=== PATIENT | female | born 1945 | race Caucasian/White ===

== ENCOUNTER 2016-10-27 06:37 | Emergency (ER) | payer MEDICARE, OTHER ==
[~2016-10-27] VITALS: Ht 157.5 cm; Wt 65.0 kg
[~2016-10-27 06:37] MED LIST: CEPH500C3 PO; FURO20TA PO; KCL10C PO; LEVO.025 PO; SPIR50TA21 PO; VITA500015 CHEW
[2016-10-27 06:41] VITALS: BP 143/83; PULSE 84; RESP 14; TEMP 98.2; O2SAT 99
[2016-10-27] MEDS ORDERED: POTA10TA8 PO (06:48)
[2016-10-27] MEDS ORDERED: SPIR50TA PO (06:48)
[2016-10-27] MEDS ORDERED: AUGM875T PO (07:15)
[2016-10-27] MEDS ORDERED: AMOXICILLIN/CLAVULANATE K 875 MG TAB PO ONE (07:15)
[2016-10-27] MEDS ORDERED: TETANUS/DIPHTHERIA TOXOID ADULT 0.5 ML VIAL IM ONE (07:15)
[2016-10-27] MEDS ORDERED: IBUP-232 PO (07:15)
[2016-10-27] MEDS ORDERED: IBUPROFEN 600 MG TAB PO ONE (07:15)
--- NOTE | 2016-10-27 07:16 | PD ---
HPI Chief Complaint: Bite or Sting Time Seen by Provider: 07:09 Travel History International Travel<30 days: No Contact w/Intl Traveler<30days: No Traveled to known affect area: No History of Present Illness HPI 71-year-old female presents to the emergency department for evaluation of a dog bite to her left hand that occurred 3 days ago. She states that this is her dog that did this and his immunizations are up-to-date. It's a terrier mix. She reports localized tenderness and pain. She denies any fevers or chills. Patient states she currently takes a diuretic and potassium. Patient also reports striking to 25 ounce cans of alcohol daily. She denies any tobacco or drug use. She denies any loss of range of motion of the left hand. She states her tetanus immunization is not up-to-date. She denies any other complaints at this time. PFSH Past Medical History Arthritis: Yes Asthma: No Blood Disorders: No Anxiety: Yes Depression: Yes Heart Rhythm Problems: No Cancer: No Cardiovascular Problems: Yes High Cholesterol: No Chest Pain: No Congestive Heart Failure: No COPD: No Cerebrovascular Accident: No Diabetes: No Diminished Hearing: No Endocrine: No GERD: No Genitourinary: No Headaches: Yes Hepatitis: No Hiatal Hernia: No Hypertension: Yes Immune Disorder: No Kidney Stones: No Musculoskeletal: Yes (WEAKNESS) Neurologic: No Psychiatric: Yes Reproductive: No Respiratory: No Immunizations Current: No Myocardial Infarction: No Renal Failure: No Seizures: No Ulcer: No Tetanus Vaccination: < 5 Years Influenza Vaccination: Yes ?: Not Menopausal: Yes Tubal Ligation: Yes Past Surgical History Appendectomy: Yes Cholecystectomy: No Gynecologic Surgery: Yes (tubal ligation) Hysterectomy: Yes Pacemaker: No Tonsillectomy: Yes Other Surgery: Yes Social History Alcohol Use: Yes ("2 CANS DAILY") Tobacco Use: No Substance Use: No Allergies-Medications (Allergen,Severity, Reaction): Coded Allergies: No Known Allergies (Verified , 10/27/16) Reported Meds & Prescriptions Reported Meds & Active Scripts Active Reported Spironolactone 50 Mg Tab 50 Mg PO DAILY Potassium Chloride CR (Potassium Chloride) 10 Meq Tab 10 Meq PO BID Review of Systems Except as stated in HPI: all other systems reviewed are Neg Physical Exam Narrative GENERAL: Well-developed well-nourished female patient ambulatory. Afebrile., SKIN: Warm and dry. Patient has a 2 cm superficial laceration to the left dorsal hand just below the fifth MCP joint. She also has a 2 cm laceration of the dorsal surface over the second digit. She has full strength 5/5 in all digits of the left hand. She has full flexion and extension of all digits of the left hand. She also has full sensation to the distal left upper extremity. There is mild surrounding erythema to the laceration over the second digit, but no drainage. No lymphangiitis. HEAD: Normocephalic. EYES: No scleral icterus. No injection or drainage. NECK: Supple, trachea midline. No JVD or lymphadenopathy. CARDIOVASCULAR: Regular rate and rhythm without murmurs, gallops, or rubs. RESPIRATORY: Breath sounds equal bilaterally. No accessory muscle use. Lungs sounds are clear to auscultation. GASTROINTESTINAL: Abdomen soft, non-tender, nondistended. MUSCULOSKELETAL: No cyanosis, or edema. Data Data Last Documented VS Vital Signs Date Time Temp Pulse Resp B/P Pulse Ox O2 Delivery O2 Flow Rate FiO2 10/27/16 06:49 18 10/27/16 06:41 98.2 84 143/83 99 Room Air Orders Wound Care (10/27/16 07:08) Tetanus/Diphtheria Tox Adult (Tetanus/Di (10/27/16 07:15) Amoxicil-Clavulanate (Augmentin) (10/27/16 07:15) [facility] Medical Decision Making Medical Screen Exam Complete: Yes Emergency Medical Condition: Yes Medical Record Reviewed: Yes Differential Diagnosis Dog bite versus cellulitis versus laceration Narrative Course 71-year-old female presents to the emergency department for evaluation after her dog bit her left hand 3 days ago. Physical exam is reassuring. There is mild surrounding erythema to the laceration over the left second finger, but no drainage. Patient will be started on Augmentin and is given her first dose in the emergency department. Wound care is completed in the emergency department. Tetanus immunization is updated. Patient was discharged with a prescription for ibuprofen for pain, Augmentin. She is instructed on proper wound care and is to return for any acute worsening of symptoms including worsening evidence of infection. She is agreeable to this plan. The patient was discharged in stable condition with instructions, including return instructions and follow up instructions. Diagnosis Primary Impression: Dog bite of left hand Qualified Code: S61.452A - Dog bite of left hand, initial encounter Referrals: Primary Care Physician 2 days Patient Instructions: Acute Wound Care (ED), Animal Bite (ED), General Instructions Additional Instructions: Clean wounds twice daily with soap and water and apply [id number] antibiotic ointment. Keep wounds clean and dry. Take antibiotic as directed until gone. Take ibuprofen as directed as needed with food for pain. Follow-up with your primary care physician in 2 days for recheck. Return to the emergency department for any acute worsening of symptoms. Med/Other Pt SpecificInfo: Prescription(s) given Scripts Ibuprofen 600 Mg [id number] Mg PO TID PRN (PAIN SCALE 1 TO 10) #21 TAB Ref 0 Prov:Maricruz Romero 10/27/16 Amoxicillin-Clavulanate (Augmentin)875-125 mg [id number] Mg PO BID 10 Days Ref 0 not for use in CrCl <30 ml/min. Prov:Maricruz Romero 10/27/16 Disposition: 01 DISCHARGE HOME Condition: Stable Maricruz Romero Oct 27, 2016 07:16
== END 2016-10-27 07:53 | disposition home or self-care (01) ==
LOC: NEPB 06:37
DX: S61.452A Open bite of left hand, initial encounter (principal); I10 Essential (primary) hypertension; W54.0XXA Bitten by dog, initial encounter; Y92.009 Unspecified place in unspecified non-institutional (private) residence as the place of occurrence of the external cause; Z23 Encounter for immunization
CPT/HCPCS: 90471; 90714

== ENCOUNTER 2017-04-21 17:59 | Emergency (ER) | payer MEDICARE, MEDICAID ==
[~2017-04-21] VITALS: Ht 157.5 cm; Wt 66.0 kg
[~2017-04-21 17:59] MED LIST changes: +AUGM875T PO; -CEPH500C3 PO; -FURO20TA PO; +IBUP-232 PO; -KCL10C PO; -LEVO.025 PO; +POTA10TA8 PO; +SPIR50TA PO; -SPIR50TA21 PO; -VITA500015 CHEW
[2017-04-21 19:20] VITALS: BP 98/57; PULSE 85; RESP 18; TEMP 97.6; O2SAT 94
[2017-04-21] MEDS ORDERED: SODIUM CHLOR 0.9% 1000 ML INJ 1,000 ML IV SCH (19:23)
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
[2017-04-21] MEDS ORDERED: SODIUM CHLORIDE 0.9% FLUSH 5 ML FLUSH IV FLUSH PRN (19:30)
[2017-04-21] MEDS ORDERED: LIBRAX PO (19:55)
[2017-04-21 20:31] LABS: AUTOMATED NEUTROPHIL # 8.8 TH/MM3 (1.8-7.7); BASOPHIL # 0.1 TH/MM3 (0-0.2); BASOPHIL % 0.7 % (0.0-2.0); EOSINOPHIL # 0.4 TH/MM3 (0-0.4); EOSINOPHIL % 2.9 % (0.0-4.0); HEMATOCRIT 40.4 % (35.0-46.0); HEMO FLAGS DIFF FINAL; LYMPH % 20.4 % (9.0-44.0); LYMPHOCYTE # 2.5 TH/MM3 (1.0-4.8); MEAN CELL VOLUME 89.2 FL (80.0-100.0); MEAN CORPUSCULAR HEMOGLOBIN 28.5 PG (27.0-34.0); MONO % 4.9 % (0.0-8.0); NEUT % 71.1 % (16.0-70.0); PLATELET COUNT 345 TH/MM3 (150-450); RED BLOOD COUNT 4.53 MIL/MM3 (4.00-5.30); RED CELL DISTRIBUTION WIDTH 13.8 % (11.6-17.2); WHITE BLOOD COUNT 12.4 TH/MM3 (4.0-11.0)
[2017-04-21 20:52] LABS: BICARBONATE 17.8 MEQ/L (21.0-32.0); POTASSIUM 3.7 MEQ/L (3.5-5.1)
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
--- NOTE | 2017-04-21 21:18 | RADRPT ---
EXAM DATE/TIME: 04/21/2017 19:50 [facility] COMPARISON: No previous studies available for comparison. INDICATIONS : Left knee pain post fall today MEDICAL HISTORY : None. SURGICAL HISTORY : None. ENCOUNTER: Initial ACUITY: 1 day PAIN SCORE: 5/10 LOCATION: Left anterior knee FINDINGS: Four view examination of the left knee demonstrates narrowing of the medial joint space. Mild hypertr ophic change is seen at the medial and lateral aspects of the knee. No acute fracture is seen. No eff usion is seen. The bones are osteopenic. Vascular calcifications are seen. CONCLUSION: Mild chronic change as described above. Brian Johnson MD on April 21, 2017 at 21:16 Board Certified Radiologist. This report was verified electronically.
[2017-04-21 22:19] VITALS: BP 108/56
== END 2017-04-21 22:21 | disposition home or self-care (01) ==
LOC: NEPE 17:59
DX: S02.31XA Fracture of orbital floor, right side, initial encounter for closed fracture (principal); S00.211A Abrasion of right eyelid and periocular area, initial encounter; S50.812A Abrasion of left forearm, initial encounter; M25.562 Pain in left knee; R42 Dizziness and giddiness; I10 Essential (primary) hypertension; V19.3XXA Pedal cyclist (driver) (passenger) injured in unspecified nontraffic accident, initial encounter; Y93.55 Activity, bike riding; Z79.899 Other long term (current) drug therapy; Z87.39 Personal history of other diseases of the musculoskeletal system and connective tissue; Z86.59 Personal history of other mental and behavioral disorders; Z86.79 Personal history of other diseases of the circulatory system
CPT/HCPCS: 70450; 72125; 73564; 80048; 80307; 85025; 96360; 99285; J7030

== ENCOUNTER 2017-09-27 10:40 | Emergency (ER) | payer MEDICARE, MEDICAID ==
[~2017-09-27] VITALS: Ht 157.5 cm; Wt 63.0 kg
[~2017-09-27 10:40] MED LIST changes: -AUGM875T PO; -IBUP-232 PO; +LIBRAX PO; -POTA10TA8 PO; -SPIR50TA PO
[2017-09-27 10:42] VITALS: BP 131/76; PULSE 72; RESP 16; TEMP 98.2; O2SAT 97
--- NOTE | 2017-09-27 10:55 | PD ---
HPI Chief Complaint: Hip Injury Time Seen by Provider: 10:48 Travel History International Travel<30 days: No Contact w/Intl Traveler<30days: No Traveled to known affect area: No History of Present Illness HPI 72-year-old female that presents to the ED for evaluation of left hip injury. Per patient is happened about a week ago. Per patient her doctor Dr. Garcia sent her here with a prescription says that she is to get an x-ray. She is here for the x-ray and make sure she is okay. Per patient she usually uses a wheelchair or a walker but she did not bring it today. She states that the pain is 8 out of 10. Able to ambulate but with some limping. Denies any numbness, tingling, weakness. Injury occurred about a week ago. She states that she had surgery on that hip from a previous fracture. Pain is only to the head. No back pain or neck pain. No head pain. No blood thinner use. She denies significant for pain for it. Has no allergies to medication. No other medical issues at this time. PFSH Past Medical History Arthritis: Yes Asthma: No Blood Disorders: No Anxiety: Yes Depression: Yes Heart Rhythm Problems: No Cancer: No Cardiovascular Problems: Yes High Cholesterol: No Chest Pain: No Congestive Heart Failure: No COPD: No Cerebrovascular Accident: No Diabetes: No Diminished Hearing: No Endocrine: No GERD: No Genitourinary: No Headaches: Yes Hepatitis: No Hiatal Hernia: No Hypertension: Yes Immune Disorder: No Kidney Stones: No Musculoskeletal: Yes (WEAKNESS) Neurologic: No Psychiatric: Yes Reproductive: No Respiratory: No Immunizations Current: No Myocardial Infarction: No Renal Failure: No Seizures: No Ulcer: No ?: Not Menopausal: Yes Tubal Ligation: Yes Past Surgical History Appendectomy: Yes Cholecystectomy: No Eye Surgery: Yes (CATARACT L EYE 04/06) Gynecologic Surgery: Yes (tubal ligation) Hysterectomy: Yes Pacemaker: No Tonsillectomy: Yes Other Surgery: Yes Social History Alcohol Use: Yes (2 BEERS DAILY) Tobacco Use: No Substance Use: No Allergies-Medications (Allergen,Severity, Reaction): Coded Allergies: No Known Allergies (Verified , 04/21/17) Reported Meds & Prescriptions Reported Meds & Active Scripts Active Diclofenac Sodium DR (Diclofenac Sodium) 75 Mg Tabdr 75 Mg PO BID PRN Review of Systems Except as stated in HPI: all other systems reviewed are Neg Physical Exam Narrative GENERAL: SKIN: Warm and dry. HEAD: Atraumatic. Normocephalic. EYES: Pupils equal and round. No scleral icterus. No injection or drainage. ENT: No nasal bleeding or discharge. Mucous membranes pink and moist. NECK: Trachea midline. No JVD. CARDIOVASCULAR: Regular rate and rhythm. RESPIRATORY: No accessory muscle use. Clear to auscultation. Breath sounds equal bilaterally. GASTROINTESTINAL: Abdomen soft, non-tender, nondistended. Hepatic and splenic margins not palpable. MUSCULOSKELETAL: Extremities without clubbing, cyanosis, or edema. No obvious deformities. Full range of motion of the upper and lower extremities bilaterally. Patient does have pain reproducible with touch in the left hip but able to move it fully. Pain more reproducible with weightbearing. Flexion and extension and internal and external rotation she is able to do will with some pain. Good capillary refill. Sensation intact bilaterally. 2+ pulses bilaterally. Neurovascular intact. No obvious deformities noted. NEUROLOGICAL: Awake and alert. No obvious cranial nerve deficits. Motor grossly within normal limits. Five out of 5 muscle strength in the arms and legs. Normal speech. PSYCHIATRIC: Appropriate mood and affect; insight and judgment normal. Data Data Last Documented VS Vital Signs Date Time Temp Pulse Resp B/P (MAP) Pulse Ox O2 Delivery O2 Flow Rate FiO2 09/27/17 10:42 98.2 72 16 131/76 (94) 97 Room Air Orders Orders Hip, Uni(Ap&Lat) W Ap Pelvis (09/27/17 ) [facility] Medical Decision Making Medical Screen Exam Complete: Yes Emergency Medical Condition: Yes Medical Record Reviewed: Yes Interpretation(s) xray of the left hip showed no sign of acute bony injury read by radiologist. Differential Diagnosis Hip fracture versus contusion versus bruise versus arthritis versus chronic pain Narrative Course 72-year-old female that presents to the ED for evaluation of left hip pain. Patient was properly examined and was found to have signs and symptoms concerning for fracture. Patient was sent here by her doctor to get an x-ray. X-ray was ordered. X-ray showed no sign of acute disease. Patient was reassured. At this time recommend trial of anti-inflammatories for discomfort. Patient was told to follow with her orthopedic doctor and her primary care doctor. See ED if worsening symptoms. Ice or warm compresses. Continue using wheelchair as well as walker. See ED if worsening symptoms. Follow with PCP. Diagnosis Primary Impression: Contusion of left hip Qualified Codes: S70.02XA - Contusion of left hip, initial encounter Patient Instructions: General Instructions Additional Instructions: Take medications as prescribed. Follow-up with PCP or orthopedic doctor See ED for any worsening symptoms. Apply ice or heat as needed for pain Med/Other Pt SpecificInfo: Prescription(s) given Scripts Diclofenac Sodium DR (Diclofenac Sodium DR) 75 Mg Tabdr 75 MG PO BID Y for PAIN SCALE 1 TO 10, #20 TAB 0 Refills Prov: Babak Rivero MD 09/27/17 Disposition: 01 DISCHARGE HOME Condition: Stable Harris Harmon Sep 27, 2017 10:55
[2017-09-27] MEDS ORDERED: DICL75TA PO ×2 (11:32→11:43)
--- NOTE | 2017-09-27 12:15 | RADRPT ---
EXAM DATE/TIME: 09/27/2017 11:06 [facility] COMPARISON: No previous studies available for comparison. INDICATIONS : Right hip pain, fall. MEDICAL HISTORY : None. 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 Prosthesis is well-sea aleida. Alignment is anatomic. A fracture is not appreciated. Moderate vascular calcifications are evid ent. CONCLUSION: Anatomic alignment. There is no fracture. Juma Lindo MD FACR Board Certified Radiologist. This report was verified electronically.
== END 2017-09-27 12:26 | disposition home or self-care (01) ==
LOC: NEPK 10:40
DX: S70.02XA Contusion of left hip, initial encounter (principal); I10 Essential (primary) hypertension; F32.9 Major depressive disorder, single episode, unspecified
CPT/HCPCS: 73502; 99283